=== PATIENT | male | born 1975 | race Two or more races ===

== ENCOUNTER 2018-08-27 16:31 | Emergency (ER) | payer MEDICAID ==
[~2018-08-27] VITALS: Ht 172.7 cm; Wt 117.9 kg
[2018-08-27 18:32] VITALS: BP 132/92
[2018-08-27] MEDS ORDERED: KETOROLAC TROMETH 60MG/2ML VIAL IM ONE (18:45)
[2018-08-27] MEDS ORDERED: METHOCARBAMOL 500 MG TAB PO ONE (18:45)
== END 2018-08-27 19:19 | disposition home or self-care (01) ==
LOC: ER 16:39
DX: M79.621 Pain in right upper arm (principal); M25.572 Pain in left ankle and joints of left foot; M54.2 Cervicalgia; E78.5 Hyperlipidemia, unspecified; F12.90 Cannabis use, unspecified, uncomplicated; Z88.0 Allergy status to penicillin; V49.3XXA Car occupant (driver) (passenger) injured in unspecified nontraffic accident, initial encounter; Y93.89 Activity, other specified; Y99.8 Other external cause status; Y92.89 Other specified places as the place of occurrence of the external cause
CPT/HCPCS: 72040; 73060; 96372; 99283; J1885

== ENCOUNTER 2020-01-24 17:38 | Emergency (ER) | payer MEDICAID ==
[~2020-01-24] VITALS: Ht 172.7 cm; Wt 115.7 kg
[2020-01-24 18:33] LABS: Urine Bacteria NONE SEEN /hpf (None Seen); Urine Blood 3+ /uL (Negative); Urine Mucus FEW (None Seen); Urine Specific Gravity 1.028 (1.001-1.035); Urine WBC 2 /hpf (0 - 3)
[2020-01-24 18:59] LABS: Basophils # (auto) 0 10 ^3/uL (0-0.2); Basophils % (auto) 0.3 % (0.0-2.0); Eosinophils # (auto) 0.1 10 ^3/uL (0-0.8); Eosinophils % (auto) 0.5 % (0.0-7.0); Hematocrit 46.2 % (41.0-53.0); Hemoglobin 15.2 g/dL (13.5-17.5); Lymphocytes # (auto) 1.4 10 ^3/uL (0.4-5.4); Lymphocytes % (auto) 13.1 % (10.0-50.0); Mean Corpuscular Hemoglobin 28.3 pg (28.0-32.0); Mean Corpuscular Hgb Conc. 32.9 g/dL (32.0-36.0); Mean Corpuscular Volume 85.9 fL (80.0-100.0); Monocytes # (auto) 0.5 10 ^3/uL (0-1.3); Neutrophils # (auto) 8.5 10 ^3/uL (1.6-8.6); Neutrophils % (auto) 81.1 % (37.0-80.0); Platelet Count (auto) 206 10^3/uL (140-450); Red Blood Cells 5.38 10^6/uL (4.5-5.90); Red Cell Distribution Width 15.2 % (11.8-14.3); White Blood Cell 10.5 10^3/uL (4.4-10.8)
[2020-01-24 19:15] LABS: Calcium 8.6 mg/dL (8.5-10.1)
[2020-01-24 19:18] LABS: Albumin 3.9 g/dL (3.4-5.0); BUN/Creatinine Ratio 13.6
[2020-01-24 19:20] LABS: Total Protein 7.5 g/dL (6.4-8.2)
[2020-01-24] MEDS ORDERED: ONDANSETRON HCL 4 MG/2 ML VIAL IV ONE (20:00)
[2020-01-24] MEDS ORDERED: KETOROLAC TROMETH 30 MG/ML 1ML VIAL IV ONE (20:00)
[2020-01-24] MEDS ORDERED: SODIUM CHLORIDE 0.9% 1,000 ML IV ONE (20:00)
[2020-01-24 20:29] VITALS: BP 144/87
== END 2020-01-24 21:00 | disposition home or self-care (01) ==
LOC: ER 17:38
DX: N20.0 Calculus of kidney (principal); E78.5 Hyperlipidemia, unspecified; Z88.0 Allergy status to penicillin
CPT/HCPCS: 36415; 74176; 80053; 81001; 82150; 83690; 85025; 96361; 96374; 99284; J1885